=== PATIENT | female | born 1970 | race Caucasian/White ===

== ENCOUNTER 2025-04-01 16:28 | Emergency (ER) | payer MEDICAID ==
[~2025-04-01] VITALS: Ht 160 cm; Wt 73.0 kg
[2025-04-01 16:42] VITALS: O2SAT 99
[2025-04-01] MEDS ORDERED: HYDR-3735 MT (17:36)
[2025-04-01] MEDS: HYDROXYZINE 25MG TABLET PO ONE (17:57)
[2025-04-01 18:32] VITALS: BP 147/93; PULSE 93; RESP 18; TEMP 36.8; O2SAT 98
== END 2025-04-01 18:53 | disposition home or self-care (01) ==
LOC: ER 16:28
DX: F41.1 Generalized anxiety disorder (principal); I10 Essential (primary) hypertension; F20.9 Schizophrenia, unspecified; F31.9 Bipolar disorder, unspecified
CPT/HCPCS: 99283